=== PATIENT | male | born 1975 | race Caucasian/White ===

== ENCOUNTER → 2017-05-31 | Outpatient (CLI) | payer BC ==
[2017-05-31 12:04] LABS: Appearance,Urine Clear (Clear); Bilirubin,Urine Negative (Negative); Blood,Urine Trace (Negative); Color,Urine Yellow; Glucose,Urine (UA) Negative (Negative); Ketones,Urine Negative (Negative); Leukocyte Esterase,Urine Negative (Negative); Mucus,Urine Occasional /hpf; Nitrite,Urine Negative (Negative); PH, Urine 5.5 (5.0-8.0); Protein,Urine Trace (Negative); RBC,Urine 1 /hpf (0-5); Specific Gravity,Urine 1.022 (1.001-1.035); Squamous Epithelial Cell,Urine <1 /hpf (0-4); Urobilinogen,Urine <2.0 mg/dL (<2.0); WBC,Urine <1 /hpf (0-5)
[2017-05-31 12:07] LABS: Partial Thromboplastin Time 26.2 sec (22.0-30.0); Prothrombin Time 9.7 sec (9.0-12.0)
[2017-05-31 12:09] LABS: HCT 44.6 % (39.0-53.0); HGB 14.5 gm/dL (13.0-17.5); MCH 28.7 pg (25.0-35.0); MCHC 32.6 g/dL (31.0-37.0); MCV 88.2 fL (80.0-100.0); Mean Platelet Volume 6.9; Platelet Count 251 k/uL (150-450); RBC 5.06 m/uL (4.30-5.90); RDW 12.1 % (11.5-15.5); WBC 5.3 k/uL (3.8-10.6)
[2017-05-31 12:23] LABS: ALT 73 U/L (21-72); AST 38 U/L (17-59); Albumin 4.5 g/dL (3.5-5.0); Alkaline Phosphatase 97 U/L (38-126); Anion Gap 13 mmol/L; Blood Urea Nitrogen 15 mg/dL (9-20); Calcium 9.1 mg/dL (8.4-10.2); Carbon Dioxide 23 mmol/L (22-30); Chloride 106 mmol/L (98-107); Glucose 102 mg/dL (74-99); Potassium 4.5 mmol/L (3.5-5.1); Sodium 142 mmol/L (137-145); Total Bilirubin 0.6 mg/dL (0.2-1.3); Total Protein 7.6 g/dL (6.3-8.2)
== END | disposition home or self-care (01) ==
LOC: LABWHC1 11:41
PROVIDERS: ATTEND Orthopaedic Surgery Orthopaedic Surgery of the Spine
DX: M51.27 Other intervertebral disc displacement, lumbosacral region (principal)
CPT/HCPCS: 36415; 80053; 81001; 85027; 85610; 85730